=== PATIENT | female | born 1955 | race Caucasian/White ===

== ENCOUNTER → 2022-02-04 16:18 | Outpatient (CLI) | payer BC, SELFPAY ==
--- NOTE | 2022-02-04 | DI.RAD.S_ITS ---
PROCEDURE: XR ANKLE RT MIN 3V INDICATIONS: rt ankle pain for 3.5 weeks TECHNIQUE: 3 views of the ankle were acquired. COMPARISON: [facility], CR, FOOT COMP MIN 3VW (RT), 06/30/2013, 13:53. [facility], CR, FOOT COMP MIN 3VW (RT), 06/14/2013, 12:22. FINDINGS: Bones: No fractures or dislocations. Ankle mortise is normally aligned. No suspicious bony lesions. Mild degenerative disease. Soft tissues: Suspect small tibiotalar joint effusion. Achilles tendon appears normal. IMPRESSION: 1. Mild degenerative joint disease. 2. Suspect small ankle joint effusion. Dictated by: Luigi Cole M.D. on 02/04/2022 at 17:04 Approved by: Luigi Cole M.D. on 02/04/2022 at 17:36
== END ==
PROVIDERS: PCP Internal Medicine; Referring Provider Internal Medicine; Visit Provider Internal Medicine
DX: M19.071 Primary osteoarthritis, right ankle and foot (principal); M25.571 Pain in right ankle and joints of right foot
CPT/HCPCS: 73610